=== PATIENT | female | born 1970 ===

== ENCOUNTER 2021-05-22 06:10 | Day surgery (SDC) | payer OTHER ==
[~2021-05-22] VITALS: Ht 160 cm; Wt 83.6 kg
[~2021-05-22 06:10] MED LIST: COQ-10100 MG PO; IBUP200 PO; OMEGA-3 + D SO1 EACH PO; POTASSIUM PO
--- NOTE | 2021-05-22 06:56 | NUR ---
Ambulatory in Day Surgery Surgical site prepped with 2% Chlorhexidine cloth wipe. Liz Paws warming gown applied. History, Chart, Medications and Allergies reviewed before start of procedure.Lungs clear T/O to Auscultation. Patient confirms NPO status and agrees with scheduled surgery. Pre-Op teaching done. Pt verbalizes understanding. Patient States Post-Procedure ride home has been arranged.
--- NOTE | 2021-05-22 18:19 | NUR ---
SHIFT SUMMARY INITIALLY ARRIVED TO THE UNIT VERY PAINFUL BUT HAS SINCE DONE WELL. PARTICPATED WELL w/ THERAPY & HAS BEEN UP TO VOID x 2. CURRENTLY RESTING IN BED AFTER FINISHING DINNER. DELINES MORE THAN HALF DOSE OF TYLENOL.
[2021-05-23 04:50] LABS: BASOPHILS ABSOLUTE AUTO 0.02 K/mm3 (0.00-0.23); BASOPHILS PERCENT AUTO 0 % (0-2); EOSINOPHILS ABSOLUTE AUTO 0.06 K/mm3 (0.00-0.68); EOSINOPHILS PERCENT AUTO 0 % (0-6); Hematocrit 32.9 % (33.0-51.0); Hemoglobin 10.5 g/dL (11.5-16.0); IMMATURE GRAN ABSOLUTE AUTO 0.06 K/mm3 (0.00-0.10); IMMATURE GRAN PERCENT AUTO 0 % (0-1); LYMPHOCYTES ABSOLUTE AUTO 2.54 K/mm3 (0.84-5.20); LYMPHOCYTES PERCENT AUTO 17 % (21-46); MONOCYTES ABSOLUTE AUTO 1.15 K/mm3 (0.16-1.47); MONOCYTES PERCENT AUTO 8 % (4-13); Mean Corpuscular HGB 28.3 pg (26.0-34.0); Mean Corpuscular HGB Conc 31.9 g/dL (31.5-36.5); Mean Corpuscular Volume 89 fL (80-100); NEUTROPHILS ABSOLUTE AUTO 10.79 K/mm3 (1.96-9.15); NEUTROPHILS PERCENT AUTO 74 % (41-73); Platelet Count 220 K/mm3 (150-400); RDW Coefficient Variation 13.4 % (11.7-14.2); RDW Standard Deviation 43.4 fL (35.1-46.3); Red Blood Cell Count 3.71 M/mm3 (3.80-5.20); White Blood Cell Count 14.62 K/mm3 (4.00-11.30)
--- NOTE | 2021-05-23 05:12 | NUR ---
SHIFT SUMMARY: PT POD#1 FOR A LEFT TKA. PT DENIES N/T. WIGGLES TOES. CAP REFILL <3 SEC WITH STRONG PEDAL PULSES. AQUACEL AND MERCY WRAP DRESSING C/D/I WITH POLAR PACK IN PLACE. PAIN BEING MANAGED WITH SCHEDULED TORADOL AND TYLENOL PER EMAR. PT AMBULATING TO BATHROOM WITH FWW+GB. SBA. VOIDING WELL. PT TOLERATING PO AND DENIES N/V. PLAN FOR PHYSICAL THERAPY TODAY AND POSSIBLE DISCHARGE HOME.
[2021-05-23 05:27] LABS: Anion Gap 9 mmol/L (6-16); Blood Urea Nitrogen 14 mg/dL (8-24); Bun/Creatinine Ratio 23.8 (12.0-20.0); CO2, Blood 24 mmol/L (21-32); Calcium, Blood 8.5 mg/dL (8.5-10.1); Chloride, Blood 108 mmol/L (98-108); Creatinine, Blood 0.59 mg/dL (0.40-1.00); Glomerular Filtration Rate >60 (60-); Glucose, Blood 111 mg/dL (70-99); Potassium, Blood 3.8 mmol/L (3.5-5.5); Sodium, Blood 141 mmol/L (136-145)
[2021-05-23] MEDS ORDERED: Percocet 5-3251 EACH PO (10:06)
[2021-05-23] MEDS ORDERED: ASPI81CH PO (10:07)
--- NOTE | 2021-05-23 10:33 | NUR ---
DISCHARGE POD 1 RTKA PT CLEARED THERAPY, PAIN MANAGED PER EMAR. DISCHARGE INSTRUCTIONS GONE OVER WITH PATIENT AND . DECLINED FURTHER QUESTIONS. AQUACELS AND PRESCRIPTIONS SENT WITH PATIENT. POLAR SHANNON SENT WITH PATIENT. DRESSING REMAINS CDI. ESCORTED OUT WITH WHEELCHAIR, ALL BELONGINGS WITH PATIENT. IV REMOVED PRIOR TO DISCHARGE.
== END 2021-05-23 10:35 | disposition home or self-care (01) ==
LOC: ORSCMMR 06:10 → ORD 07:30 → SURS 10:06 → ORSCMMR 05-23 10:35
PROVIDERS: Orthopaedic Surgery
PROC: 8E0Y0CZ Robotic Assisted Procedure of Lower Extremity, Open Approach (ICD-10-PCS; principal; 2021-05-22 07:30)
PROC: 0SRC0JA Replacement of Right Knee Joint with Synthetic Substitute, Uncemented, Open Approach (ICD-10-PCS; principal; 2021-05-22 07:30)
DX: M17.12 Unilateral primary osteoarthritis, left knee (principal)
CPT/HCPCS: 27447; S2900; 36415; 73560-RT; 80048; 85025; 97110; 97116; 97162; A9270; C1776; J0171; J0690; J0735; J1100; J1170; J1885; J2250; J2405; J2704; J2795; J3010; J7120